=== PATIENT | female | born 1955 | race Caucasian/White ===

== ENCOUNTER → 2019-02-22 | Outpatient (CLI) | payer MEDICARE ==
[~2019-02-22] MED LIST: /TIOT18INH; AMLO5TAB6 PO; BENI20TA11; BREO1INH INH; BUSP5TA PO; FURO40TA2 PO; IPRA0.00 INH; LOSA100T50 PO; PANT40TA3 PO; POTA10TA16 PO; PRED5TA PO; TRAM50TA2; TRAM50TA2 PO; XANA0.5T PO
--- NOTE | 2019-02-22 16:58 | REP ---
PET/CT: History: Diagnosing lung cancer. Comparisons: Comparison chest CT study August 31, 2018. TECHNIQUE: 80 minutes following the intravenous injection of a 9.5 mCi dose of F-18 FDG, three-dimensional PET scintigraphy is acquired from the skull base to the proximal thighs. Triplanar noncontrast CT scanning is acquired through the same anatomic range for attenuation correction, and image registration with scan parameters optimized to minimize radiation exposure to the patient. PET scintigraphy and CT datasets were fused and displayed on a workstation with multiplanar and projection display capability. PET/CT Findings: There is no abnormal hypermetabolic uptake within the chest. Emphysematous changes are noted particularly in the upper lobes. There is mild bibasilar linear fibrosis. Head and neck soft tissues are unremarkable. There is no abnormal adrenal uptake. No abnormal abdominal or pelvic hypermetabolic uptake is appreciated. Urinary bladder is rather distended and there is a moderate amount of formed stool in the rectum consistent with constipation. There is normal variant skeletal muscle uptake about the head and neck and proximal thigh soft tissues. Study is otherwise unremarkable. Impression: Negative PET scintigraphy. The rectum is dilated with formed stool and the urinary bladder is somewhat distended. Electronically Signed by Braxton Rutledge MD 02/22/2019 05:26 P
== END ==
LOC: M PLARAD 10:34
PROVIDERS: ATTEND Internal Medicine Pulmonary Disease
DX: R91.8 Other nonspecific abnormal finding of lung field (principal)
CPT/HCPCS: 78815; A9552

== ENCOUNTER 2019-06-09 00:26 | Inpatient (IN) | payer MEDICARE, BC ==
[~2019-06-09] VITALS: Ht 162.6 cm; Wt 41.9 kg
[2019-06-09] VITALS (20 sets, daily range): BP systolic 87–128; BP diastolic 56–74; O2SAT 94
[~2019-06-09 00:26] MED LIST changes: -/TIOT18INH; +SPIR1CAP
[2019-06-09] MEDS ORDERED: IPRATROPIUM 0.5MG/ALBUTEROL 2.5MG INH SOL UD 3ML (DUONEB)(J7620) NEB PRN (01:30)
[2019-06-09] MEDS ORDERED: ACETAMINOPHEN TAB 650MG DOSE (2X325MG) PO PRN ×2 (01:30→02:00)
[2019-06-09] MEDS ORDERED: ALPRAZolam 0.25 MG TAB PO ONE (01:45)
[2019-06-09] MEDS ORDERED: ONDANSETRON 4MG/2ML VIAL (J2405) IV PRN (01:45)
[2019-06-09 01:58] LABS: ABG BASE EXCESS 6.3 (-2.0-2.0); ABG HCO3 33.3 MEQ/L (22.0-26.0); ABG O2 SATURATION 92.9 % (95.0-99.0); ABG PARTIAL PRESSURE CO2 58.9 mmHg (35.0-45.0); ABG PARTIAL PRESSURE O2 69.4 mmHg (75.0-100.0); ABG STANDARD HCO3 30.1 MEQ/L (22.0-26.0); ABG TOTAL CO2 35.1 MEQ/L (23.0-31.0)
[2019-06-09] MEDS ORDERED: VENTAER INH (01:59)
[2019-06-09] MEDS ORDERED: DULO1CAP6 PO (01:59)
[2019-06-09] MEDS ORDERED: IPRA0.00 INH (01:59)
[2019-06-09] MEDS ORDERED: SYMB80INH INH (01:59)
[2019-06-09] MEDS ORDERED: BUSP-29 PO (02:00)
[2019-06-09] MEDS ORDERED: AZITHROMYCIN INJ 500 MG, VIAL MATE ADAPTER 1 EACH in D5W 250 ML IV SCH (02:00)
[2019-06-09] MEDS ORDERED: IPRATROPIUM 0.5MG/ALBUTEROL 2.5MG INH SOL UD 3ML (DUONEB)(J7620) NEB ONE (02:00)
[2019-06-09] MEDS: methylPREDNISolone INJ 125 MG/2 ML VIAL (J2930) IV SCH ×2 (02:17→09:12)
--- NOTE | 2019-06-09 02:42 | HPEPDOC ---
General Date of Admission Jun 09, 2019 at 01:19 Date of Service: Jun 09, 2019 Chief Complaint The patient is a 63-year-old female admitted with a reason for visit of Copd Exacerbation. History of Present Illness 63-year-old female with past medical history of COPD with emphysema, chronic hypoxemic respiratory failure requiring 2 L of oxygen at baseline, chronic hypercapnic respiratory failure, hypertension, diastolic congestive heart failure, anxiety, and chronic back pain initially presented to [facility] for shortness of breath. The patient's history is limited due to her clinical presentation. According to reports the patient started to feel acutely short of breath this afternoon with increased cough and wheezing. EMS was called, however the patient did not go to the hospital at that time. Later in the evening, the patient's respiratory status worsened and EMS was once again called. In the [facility], the patient was given IV steroids and nebulizer therapy which did improve the patient's respiratory status slightly but the patient remained tachypneic/tachycardic. According to the ER provider there the patient has been hospitalized over 8 times in the last 1 year, and she has been transferred to [place] multiple times due to her high risk of intubation, and requiring close monitoring in an intensive care unit setting. The patient has been transferred here for close monitoring in the intensive care unit and the potential need for BiPAP/Intubation should her respiratory further worsen. Home Medications Scheduled Amlodipine Besylate (Amlodipine Besylate) 5 Mg Tab, 5 MG PO DAILY, (Reported) Budesonide/Formoterol (Symbicort 80-4.5 Mcg Inhaler) 6.9 Gm Hfa.aer.ad, 2 PUFF INH BID, (Reported) Buspirone HCl (Buspirone HCl) 10 Mg Tablet, 10 MG PO BID, (Reported) Duloxetine Hcl (Duloxetine HCl) 60 Mg Capsule.dr, 60 MG PO DAILY, (Reported) Furosemide (Furosemide) 40 Mg Tab, 40 MG PO DAILY, (Reported) Ipratropium/Albuterol Sulfate (Iprat-Albut 0.5-3(2.5) mg/3 ml) 1 Sonia Sonia, 3 ML INH BID, (Reported) Losartan Potassium (Losartan Potassium) 100 Mg Tab, 100 MG PO DAILY, (Reported) Pantoprazole Sodium (Pantoprazole Sodium) 40 Mg Tab, 40 MG PO DAILY, (Reported) Potassium Chloride (Potassium Chloride) 10 Meq Tab, 10 MEQ PO BID, (Reported) Prednisone (Prednisone) 5 Mg Tab, 5 MG PO DAILY, (Reported) Scheduled PRN Albuterol Sulfate (Ventolin Hfa) 18 Gm Hfa.aer.ad, 2 PUFF INH Q4H PRN for SHORTNESS OF BREATH, (Reported) Ipratropium/Albuterol Sulfate (Iprat-Albut 0.5-3(2.5) mg/3 ml) 3 Ml Ampul.neb, 3 ML INH QID PRN for SHORTNESS OF BREATH, (Reported) Tramadol HCl (Tramadol HCl) 50 Mg Tab, 50 MG PO TID PRN for PAIN, (Reported) Allergies Coded Allergies: lidocaine (Verified Allergy, Mild, RASH FROM PATCH, 06/09/19) Past Medical History Medical History As noted in HPI. Surgical History Tubal ligation Social History * Smoker: former Smoker Review of Systems Other systems 10 point review of systems negative unless otherwise specified in HPI. Physical Examination General Exam: Positive: Cooperative, Other (mild-moderate distress 2/2 SOB) ENT Exam: Positive: Atraumatic; Negative: Mucous membr. moist/pink (dry mucous membranes) Neck Exam: Negative: JVD Chest Exam: Positive: Wheezing (expiratory wheezing noted on auscultation la terally in the upper lung zones), Diminished Heart Exam: Positive: Tachycardic, Normal S1, Normal S2 Telemetry: Positive: Sinus Abdomen Exam: Positive: Soft; Negative: Tenderness Extremity Exam: Negative: Tenderness, Swelling Psych Exam: Positive: Other (oriented to person, place, situation, and year) Laboratory Data Labs 24H Laboratory Tests 2 06/09/19 01:51: Blood Gas Bicarbonate Standard 30.1H, Arterial Blood pH 7.370, Arterial Blood Partial Pressure CO2 58.9H, Arterial Blood Partial Pressure O2 69.4L, Arterial Blood Total CO2 35.1H, Arterial Blood HCO3 33.3H, Arterial Blood Base Excess 6.3H, Arterial Blood Oxygen Saturation 92.9L Plan / VTE VTE Prophylaxis Ordered?: Yes Plan Plan Acute COPD Exacerbation CXR from [facility] notable for emphysematous disease with no acute infiltrates noted PE unlikely as the patient's D-Dimer was negative We will start the patient on serial nebulizer therapy, IV steroids IV azithromycin for exacerbation ordered Continue inhaler therapy We will continue to closely monitor the patient's respiratory status Chronic hypoxemic/hypercapnic respiratory failure The patient chronically requires 2 L of oxygen via NC, she is currently on 3L and saturating 88-92% As for the patient's chronic hypercapnic respiratory failure--- the patient has had 2 ABGs since her arrival at [place] and here at [facility]. The patient's hypercapnic respiratory failure (respiratory acidosis) remains compensated for with metabolic acidosis with a pH of 7.36 and 7.37 respectively. The patient is arousable, and oriented to place, year, and situation. We will place the patient on BiPAP while she is asleep, given her difficulty to arouse when trying to awake and concern for CO2 retention We'll continue to closely monitor the patient's respiratory status--consider pulmonary consultation in the morning given the patient's high risk for intubation Hypovolemic hyponatremia Patient noted to have a serum sodium of 124, and hypochloremia on BMP in [place] The patient was given IV fluids thereafter at the facility there Urine osmolarity/sodium, and serum osmolarity levels ordered We will repeat a BMP and order IV fluid composition accordingly We will continue to monitor serial sodium levels Leukocytosis Likely secondary to IV steroids Continue azithromycin as ordered History of diastolic congestive heart failure We will hold Lasix at this time as the patient does appear to be dehydrated History of anxiety/depression Continue BuSpar, duloxetine GERD Continue PPI Malnourishment BMI noted to be 15.7 Complicating care DVT prophylaxis Heparin SC ordered Code Status: DNR, with trial of BiPAP/Intubation Poor Oil Well Driller Prognosis given advanced COPD, requiring multiple hospitalizations, and cachectic appearing condition Condition: Guarded/Critical This patient will be signed out to my colleague at 7 AM this morning (06/09/19). Advanced Directives: Do Not Resuscitate (DNR) FATUMA SNYDER MD Jun 09, 2019 02:41
[2019-06-09] MEDS ORDERED: IPRATROPIUM 0.5MG/ALBUTEROL 2.5MG INH SOL UD 3ML (DUONEB)(J7620) NEB SCH (04:00)
[2019-06-09] MEDS: IPRATROPIUM 0.5MG/ALBUTEROL 2.5MG INH SOL UD 3ML (DUONEB)(J7620) NEB SCH ×6 (04:54→23:32)
[2019-06-09 05:03] LABS: HEMATOCRIT 33.4 % (36.0-47.0); HEMOGLOBIN 11.5 g/dl (12.0-15.5); MEAN CORPUSCULAR HEMOGLOBIN 31.3 pg (27.0-33.0); MEAN CORPUSCULAR HGB CONC 34.4 g/dl (32.0-36.5); PLATELET COUNT, AUTOMATED 297 10^3/uL (150-450); RED BLOOD COUNT 3.67 10^6/uL (4.00-5.40); WHITE BLOOD COUNT 9.3 10^3/uL (4.0-10.0)
[2019-06-09 05:24] LABS: BLOOD UREA NITROGEN 14 MG/DL (7-18); CALCIUM LEVEL 8.8 MG/DL (8.8-10.2); CARBON DIOXIDE LEVEL 35 MEQ/L (21-32); CHLORIDE LEVEL 79 MEQ/L (98-107); CREATININE FOR GFR 0.84 MG/DL (0.55-1.30); GLOMERULAR FILTRATION RATE > 60.0 (>45); GLUCOSE, FASTING 210 MG/DL (70-100); MAGNESIUM LEVEL 1.8 MG/DL (1.8-2.4); POTASSIUM SERUM 3.6 MEQ/L (3.5-5.1); SODIUM LEVEL 125 MEQ/L (136-145)
[2019-06-09] MEDS: HEPARIN SOD (PORCINE) 5000 UNITS/ML VIAL SQ SCH ×2 (05:53→18:00)
[2019-06-09] MEDS ORDERED: methylPREDNISolone INJ 125 MG/2 ML VIAL (J2930) IV SCH (06:00)
[2019-06-09 06:16] LABS: ABG BASE EXCESS 5.9 (-2.0-2.0); ABG HCO3 32.7 MEQ/L (22.0-26.0); ABG O2 SATURATION 95.2 % (95.0-99.0); ABG PARTIAL PRESSURE CO2 58.3 mmHg (35.0-45.0); ABG PARTIAL PRESSURE O2 80.2 mmHg (75.0-100.0); ABG STANDARD HCO3 29.7 MEQ/L (22.0-26.0); ABG TOTAL CO2 34.5 MEQ/L (23.0-31.0); ABG pH (ARTERIAL) 7.367 UNITS (7.350-7.450)
[2019-06-09] MEDS: SYMBICORT 80/4.5MCG INHALER 6GM INH SCH ×2 (07:20→20:12)
[2019-06-09] MEDS ORDERED: PANTOPRAZOLE 40MG TAB (PROTONIX) PO SCH (09:00)
[2019-06-09] MEDS: busPIRone 10 MG TAB PO SCH ×2 (09:12→22:18)
[2019-06-09] MEDS: DULoxetine 30 MG CAP (CYMBALTA) PO SCH (09:12)
[2019-06-09] MEDS ORDERED: PILL CUTTER 1 EACH XX PRN (11:15)
[2019-06-09] MEDS: ALPRAZolam 0.25 MG TAB PO PRN ×2 (13:49→22:18)
--- NOTE | 2019-06-09 22:11 | CR ---
DATE OF CONSULTATION: 06/09/2019 I was asked by to evaluate Ms. Guidry for noninvasive mechanical ventilation recommendations. HISTORY OF PRESENT ILLNESS: Ms. Guirdy is a 63-year-old female with end-stage chronic obstructive pulmonary disease (COPD) felt secondary to emphysema who presented to the [place] emergency department yesterday with a several-day history of increasing shortness of breath. She states this has come on over time. No significant cough. She noted chest tightness but not chest pain. She was sleeping in her bed in her usual position, which is with mild elevation. No paroxysmal nocturnal dyspnea, orthopnea. She has noted increased gastroesophageal reflux disease (GERD) symptoms over a similar time. No fevers, chills or drenching night sweats that she is aware, though she states she had a "low grade" temperature when she went to the emergency department. No lower extremity edema. No ill contacts. She was seen in the [facility] and was treated with intravenous corticosteroids and nebulized therapy, which improved her respiratory status, but she still remained tachypneic and tachycardia. She apparently has been hospitalized eight times in the past year and has been transferred to [place] multiple times due to her being "high risk" for intubation. Note, she has not ever been intubated. This time she was transferred to [facility] again for high risk of intubation. When she arrived here she was placed on noninvasive mechanical ventilation though she never had acidemia and had a compensated arterial blood gas. She tells me this morning she did not like the noninvasive mechanical ventilator and in fact it was not on when I saw her. She states that she "fought" the mask. Overall, she feels better than she did yesterday and feels close to her baseline now. She admits to significant anxiety, which is part of her difficulties. She tries to "calm myself down," but is not typically successful. She is followed by Dr. Mcdaniel and states that he has not been willing to prescribe an anti anxiolytic and that she does take tramadol for pain. Her , Yuri, who was with here this morning, states that part of her anxiety and difficulty is that she is having to go to the doctor's once a month to get a refill on the tramadol. He also notes that she has her Medical Orders for Life Sustaining Treatment (MOLST) form and is very clear on her wishes that she is a DO NOT RESUSCITATE, DO NOT INTUBATE. In fact, it is not clear that they would want her to have a noninvasive mechanical ventilator in the future but he will defer this decision to his . He, himself, is not opposed to short term NIMV but he is not sure what but she would wish. Also, she had been on long standing prednisone at 5 mg per day. She had seen Dr. Robertson who did not feel it was necessary but was not certain it could be successfully weaned off, this was in January. She saw Dr. Mcdaniel since that time, who stopped that medication so she has been off it for some time, it is listed as a home medication on her admission sheet. She does not offer any other history except to state that she is hungry and would like to eat. She does take dietary supplements sometimes once a day, but sometimes not at all. PAST MEDICAL HISTORY: 1. COPD, considered end-stage and thought secondary to emphysema. 2. Chronic hypoxemic and hypercapnic respiratory failure. 3. Hypertension. 4. Diastolic congestive heart failure. 5. Anxiety. 6. Chronic back pain. 7. History of tobacco usage. 8. History of right pneumothorax for which she had tube thoracostomy 08/14/2018. 9. GERD ALLERGIES: LIDOCAINE. I do not know what happens with that medication. MEDICATIONS ON ADMISSION: - albuterol MDI two puffs every four hours as needed - amlodipine 5 mg by mouth daily - Symbicort 80/4.5 two puffs twice a day, which she uses by a spacer - buspirone 10 mg by mouth twice a day - duloxetine 60 mg by mouth daily - furosemide 40 mg by mouth daily - ipratropium nebulization four times a day as needed - Losartan 100 mg by mouth daily - pantoprazole 40 mg by mouth daily - potassium 10 mg by mouth twice a day - tramadol 50 mg by mouth three times a day as needed FAMILY HISTORY: Mother and had COPD. Father of heart issues. SOCIAL HISTORY: Ms. Guidry is a former smoker having smoked one to one and a half packs per day since age 16, having quit 5 years ago, that gives her a 40-60 pack-year history. She has approximately six beers per week. Her work was previously as a learning development specialist. No travel to the [facility]. Ms. Guidry has one dog, unfortunately lost one dog within the past year and the second one is not expected to survive much longer. REVIEW OF SYSTEMS: As per history of present illness. Remainder of pertinent review of systems are negative. PHYSICAL EXAMINATION: General: Ms. Guidry is lying in bed in no acute distress. She intermittently uses supraclavicular accessory muscles. She is cachectic. VITAL SIGNS: Temperature 97.8 with a maximum temperature (t-max) of 100.2, pulse 109, respiratory rate 22. Blood pressure 98/62 with a MAP of 74, SPO2 95-96% on 2 liters nasal cannula. HEENT: Anicteric., Pupils equal, round, and reactive to light and accommodation. Nares: Patent bilaterally. Moist mucosa. Oropharynx clear. No lesions. No drainage in the posterior pharynx. Edentulous on top, poor dentition on the bottom. Neck: Supple without jugular venous distention (JVD), thyromegaly, masses, trachea is midline. Lymphatics: Without cervical or supraclavicular lymphadenopathy. CHEST: Increased AP diameter. LUNGS: Symmetric excursion, markedly diminished air entry, no wheeze, rhonchi or crackle on tidal excursion. Prolonged expiratory phase. Mild intermittent accessory supraclavicular muscle usage. No retractions. Hyperresonance to percussion. Cardiovascular: Distant, tachycardiac, no murmur, rub or gallop appreciated. Abdomen: Positive bowel sounds, soft, nondistended, nontender, no hepatosplenomegaly or masses appreciated. Extremities: Warm, well-perfused. Without clubbing, cyanosis or edema. Palpable pedal pulses bilaterally. Psychiatric: Appropriate affect though at times appears anxious. Neurologic: Alert, awake, oriented times three. No focal deficits. LABORATORY DATA: Complete blood count (CBC) showed hemoglobin 11.5, hematocrit 33.4, platelet count 297,000, white blood cell count 9300. Chemistry shows sodium 125, potassium 3.6, chloride 79, bicarbonate 35, anion gap 11, BUN 14, creatinine 0.8, glucose 210, osmolality 266, calcium 8.8, magnesium 1.8. Procalcitonin is pending. Arterial blood gas on arrival here was 7.37/59/69 with a measured saturation 93% and a base excess of 6.3, I do not know how much oxygen that was on. Repeat this morning after she had been put on NIMV of 09/03 with an FIO2 of 0.4 was 7.37/58/80 with a measured saturation 95.2 and a base excess of 5.9. No chest x-ray has been taken this admission. Therefore, I reviewed her chest x-ray from 09/02/2018. It is clear from that x-ray that shows that she has bullous emphysematous changes, as well as hyperinflation and increased AP diameter. IMPRESSION: 1. Chronic obstructive pulmonary disease (COPD)/end stage. It is not clear that she truly had an exacerbation. I suspect any perturbation, such as anxiety would cause her to end up with acute difficulties secondary to air trapping. 2. Chronic hypoxemic and hypercapnic respiratory failure. 3. Emphysema. 4. Gastroesophageal reflux disease (GERD), increased symptoms. This also may be the cause of her worsened shortness of breath. 5. Hypertension. 6. Diastolic congestive heart failure. 7. Anxiety. 8. Chronic lower back pain. RECOMMENDATIONS: I would discontinue the noninvasive mechanical ventilation at this point. Per the 2007 ERS/ATS guidelines, NIMV is not recommended for patients with hypercapnia who are not acidemic, this includes people who are considered to be "pending." Perceived as potentially worsening to require intubation. The data shows no difference in morbidity nor need for intubation by use of NIMV in that situation. Would allow her to eat and would continue supplementation. We will start her on very low dose of anxiolytic as they may "take the edge off." I started her on Xanax 0.125 three times a day as needed. Would increase her GERD therapy as that may be in part explaining her symptoms or triggering underlying COPD. At this point I do not feel she needs systemic corticosteroids and will markedly decrease them. I decreased her to 20 mg for 2 days, 10 mg for 2 days and then off. Again, this appears more perturbation than an exacerbation. She should be weaned off of prednisone prior to discharge if she is no longer on prednisone on a daily basis. I have asked that the reconciled medications reflect the fact that she is no longer on prednisone on a daily basis. Would discontinue the antibiotic as she gives no infectious history. However, I will start azithromycin three times per week. This had previously been discussed with Dr. Robertson. This may help reduce her need for hospitalization (although it would not alter any hospitalizations secondary to anxiety and air trapping). She also may benefit from the anti-inflammatory effect of azithromycin. This can be discontinued at discharge if she does not want to continue to use this medication. Ms. Guidry is established with Dr. Robertson, though she has not attended and cancelled most follow-up visits. I do not feel she needs pulmonary clinic followup. It is very difficult for her to be transported to clinic. In speaking to her , she spends most of her time lying in bed and it is very difficult to get to clinic visits. I feel she may benefit from palliative care if it is available in [facility] and I have asked patient and family services (PFS) to see if it is a possibility. Thank you for this consultation. We will sign off at this time. Please consult the pulmonary service if it is felt that we can be of any further assistance.
[2019-06-09] MEDS: PANTOPRAZOLE 40MG TAB (PROTONIX) PO SCH (22:19)
[2019-06-09] MEDS: traMADol 50 MG TAB PO PRN (22:19)
[2019-06-10] VITALS (13 sets, daily range): BP systolic 96–134; BP diastolic 58–83
[2019-06-10] MEDS: IPRATROPIUM 0.5MG/ALBUTEROL 2.5MG INH SOL UD 3ML (DUONEB)(J7620) NEB SCH ×6 (03:28→23:48)
[2019-06-10 05:12] LABS: HEMATOCRIT 35.4 % (36.0-47.0); HEMOGLOBIN 11.5 g/dl (12.0-15.5); MEAN CORPUSCULAR HEMOGLOBIN 30.7 pg (27.0-33.0); MEAN CORPUSCULAR HGB CONC 32.5 g/dl (32.0-36.5); MEAN CORPUSCULAR VOLUME 94.4 fl (80.0-96.0); PLATELET COUNT, AUTOMATED 318 10^3/uL (150-450); RED BLOOD COUNT 3.75 10^6/uL (4.00-5.40); WHITE BLOOD COUNT 8.4 10^3/uL (4.0-10.0)
[2019-06-10 05:30] LABS: BLOOD UREA NITROGEN 14 MG/DL (7-18); CALCIUM LEVEL 9.3 MG/DL (8.8-10.2); CARBON DIOXIDE LEVEL 42 MEQ/L (21-32); CHLORIDE LEVEL 81 MEQ/L (98-107); CREATININE FOR GFR 0.76 MG/DL (0.55-1.30); GLOMERULAR FILTRATION RATE > 60.0 (>45); GLUCOSE, FASTING 166 MG/DL (70-100); POTASSIUM SERUM 4.3 MEQ/L (3.5-5.1); SODIUM LEVEL 126 MEQ/L (136-145)
[2019-06-10] MEDS: HEPARIN SOD (PORCINE) 5000 UNITS/ML VIAL SQ SCH ×2 (06:00→18:00)
[2019-06-10] MEDS: TIOTROPIUM INHALER/CAPSULE (SPIRIVA) INH SCH (08:17)
[2019-06-10] MEDS: SYMBICORT 80/4.5MCG INHALER 6GM INH SCH ×2 (08:17→19:46)
[2019-06-10] MEDS: predniSONE 20 MG TAB PO SCH (08:39)
[2019-06-10] MEDS: PANTOPRAZOLE 40MG TAB (PROTONIX) PO SCH ×2 (08:39→20:28)
[2019-06-10] MEDS: DULoxetine 30 MG CAP (CYMBALTA) PO SCH (08:40)
[2019-06-10] MEDS: ALPRAZolam 0.25 MG TAB PO PRN ×3 (08:40→20:28)
[2019-06-10] MEDS: traMADol 50 MG TAB PO PRN ×3 (08:40→20:28)
[2019-06-10] MEDS: AZITHROMYCIN 250 MG TAB PO SCH (08:40)
[2019-06-10] MEDS: busPIRone 10 MG TAB PO SCH ×2 (08:41→20:28)
--- NOTE | 2019-06-10 11:22 | IPNPDOC ---
Text Note Date of Service The patient was seen on 06/10/19. NOTE Subjective: Patient seen and examined at bedside. Feels much better today. No new medical complaints, does note some anxiety. Objective: General: cachectic, lying comfortably in bed HEENT: NC/AT, EOMI Lungs: diminished breath sounds throughout Heart: +S1S2, RRR Abd: soft, NT, +BS Ext: no edema A/P: 63 yo female for respiratory distress #SOB - multifactorial - anxiety in the setting of of end-stage COPD - pulm c/s appreciated #chronic hypoxemic/hypercapnic respiratory failure. - grossly at baseline with supplemental O2 - continue respiratory regimen - azithromycin 3x/week - prednisone - follow as per pulm #hyponatremia #HTN #HFpEF #anxiety - started xanax # Chronic back pain. # History of tobacco usage. # History of right pneumothorax for which she had tube thoracostomy 08/14/2018 #DVT prophylaxis Dispo: pending palliative care c/s VS,Fishbone, I+O VS, Fishbone, I+O Laboratory Tests 06/09/19 11:53 06/09/19 17:51 06/10/19 04:52 Red Blood Count 3.75 L, Mean Corpuscular Volume 94.4, Mean Corpuscular Hemoglobin 30.7, Mean Corpuscular Hemoglobin Concent 32.5, Red Cell Distribution Width 11.9, Calcium Level 9.3 Vital Signs Date Time Temp Pulse Resp B/P (MAP) Pulse Ox O2 Delivery O2 Flow Rate FiO2 06/10/19 09:10 18 06/10/19 08:40 93 2.0 06/10/19 04:00 110 102/71 (81) 06/10/19 00:00 97.0 06/09/19 08:00 30 06/09/19 02:36 BIPAP/CPAP I&O- Last 24 Hours up to 6 AM 06/10/19 06:00 Intake Total 860 ml Output Total 0 ml Balance 860 ml JOHN MOLINA MD Jun 10, 2019 11:21
--- NOTE | 2019-06-10 16:18 | CR.PDOC ---
General Referring Provider: JOHN MOLINA MD Primary Care Physician: Adam Mcdaniel Attending Physician: Karlo Anthony MD Consultation REASON FOR CONSULTATION/CHIEF COMPLAINT: [89 year old with end stage COPD. She has had multiple hospitalizations for exacerbations. ALLERGIES: Please see below. HOME MEDICATIONS: Please see below. Rubina Padron PANDA and I spoke with Jennifer and her ( via telephone ) regarding [facility]. She is willing to come to clinic for follow up and to have us help her manage her chronic lung disease. She expresses a desire to have home health care. Rubina Padron PANDA will help her navigate that. We gave her will appointment for June 16 at 100 in clinic. Vital Signs/I&O Vital Signs Date Time Temp Pulse Resp B/P (MAP) Pulse Ox O2 Delivery O2 Flow Rate FiO2 06/10/19 14:56 20 98 06/10/19 14:26 2.0 06/10/19 14:00 120 113/67 (82) 06/10/19 12:00 97.2 06/09/19 08:00 30 06/09/19 02:36 BIPAP/CPAP I&O- Last 24 Hours up to 6 AM0 06/10/19 06:00 Intake Total 860 ml Output Total 0 ml Balance 860 ml Laboratory Data Labs 24H Laboratory Tests 2 06/10/19 04:52: Nucleated Red Blood Cells % (auto) 0.0, Anion Gap 3L, Glomerular Filtration Rate > 60.0, Blood Urea Nitrogen 14, Creatinine 0.76, Sodium Level 126L, Potassium Level 4.3, Chloride Level 81L, Carbon Dioxide Level 42H, Calcium Level 9.3 CBC/BMP Laboratory Tests 06/09/19 17:51 06/10/19 04:52 Red Blood Count 3.75 L, Mean Corpuscular Volume 94.4, Mean Corpuscular Hemoglobin 30.7, Mean Corpuscular Hemoglobin Concent 32.5, Red Cell Distribution Width 11.9, Calcium Level 9.3 Allergies Coded Allergies: lidocaine (Verified Allergy, Mild, RASH FROM PATCH, 06/09/19) Home Medications Scheduled Amlodipine Besylate (Amlodipine Besylate) 5 Mg Tab, 5 MG PO DAILY, (Reported) Budesonide/Formoterol (Symbicort 80-4.5 Mcg Inhaler) 6.9 Gm Hfa.aer.ad, 2 PUFF INH BID, (Reported) Buspirone HCl (Buspirone HCl) 10 Mg Tablet, 10 MG PO BID, (Reported) Duloxetine Hcl (Duloxetine HCl) 60 Mg Capsule.dr, 60 MG PO DAILY, (Reported) Furosemide (Furosemide) 40 Mg Tab, 40 MG PO DAILY, (Reported) Ipratropium/Albuterol Sulfate (Iprat-Albut 0.5-3(2.5) mg/3 ml) 1 Sonia Sonia, 3 ML INH BID, (Reported) Losartan Potassium (Losartan Potassium) 100 Mg Tab, 100 MG PO DAILY, (Reported) Pantoprazole Sodium (Pantoprazole Sodium) 40 Mg Tab, 40 MG PO DAILY, (Reported) Potassium Chloride (Potassium Chloride) 10 Meq Tab, 10 MEQ PO BID, (Reported) Prednisone (Prednisone) 5 Mg Tab, 5 MG PO DAILY, (Reported) Scheduled PRN Albuterol Sulfate (Ventolin Hfa) 18 Gm Hfa.aer.ad, 2 PUFF INH Q4H PRN for SHORTNESS OF BREATH, (Reported) Ipratropium/Albuterol Sulfate (Iprat-Albut 0.5-3(2.5) mg/3 ml) 3 Ml Ampul.neb, 3 ML INH QID PRN for SHORTNESS OF BREATH, (Reported) Tramadol HCl (Tramadol HCl) 50 Mg Tab, 50 MG PO TID PRN for PAIN, (Reported) Mary BRIONES CONTINUOUS CHURN [employer]TERMAKER Jun 10, 2019 16:18
[2019-06-11] MEDS: IPRATROPIUM 0.5MG/ALBUTEROL 2.5MG INH SOL UD 3ML (DUONEB)(J7620) NEB SCH ×5 (04:00→20:00)
[2019-06-11 05:15] LABS: HEMATOCRIT 34.7 % (36.0-47.0); MEAN CORPUSCULAR HEMOGLOBIN 30.1 pg (27.0-33.0); MEAN CORPUSCULAR HGB CONC 31.7 g/dl (32.0-36.5); MEAN CORPUSCULAR VOLUME 94.8 fl (80.0-96.0); PLATELET COUNT, AUTOMATED 342 10^3/uL (150-450); RED BLOOD COUNT 3.66 10^6/uL (4.00-5.40); WHITE BLOOD COUNT 10.5 10^3/uL (4.0-10.0)
[2019-06-11 05:43] LABS: BLOOD UREA NITROGEN 14 MG/DL (7-18); CALCIUM LEVEL 8.8 MG/DL (8.8-10.2); CARBON DIOXIDE LEVEL 42 MEQ/L (21-32); CHLORIDE LEVEL 84 MEQ/L (98-107); CREATININE FOR GFR 0.54 MG/DL (0.55-1.30); GLOMERULAR FILTRATION RATE > 60.0 (>45); GLUCOSE, FASTING 137 MG/DL (70-100); POTASSIUM SERUM 4.8 MEQ/L (3.5-5.1); SODIUM LEVEL 129 MEQ/L (136-145)
[2019-06-11] MEDS: HEPARIN SOD (PORCINE) 5000 UNITS/ML VIAL SQ SCH ×2 (06:00→17:47)
[2019-06-11] MEDS: ALPRAZolam 0.25 MG TAB PO PRN ×2 (06:58→17:47)
[2019-06-11] MEDS: traMADol 50 MG TAB PO PRN ×2 (06:59→17:47)
[2019-06-11] MEDS: TIOTROPIUM INHALER/CAPSULE (SPIRIVA) INH SCH (08:04)
[2019-06-11] MEDS: SYMBICORT 80/4.5MCG INHALER 6GM INH SCH ×2 (08:05→20:06)
--- NOTE | 2019-06-11 08:20 | IPNPDOC ---
Text Note Date of Service The patient was seen on 06/11/19. NOTE Subjective: Patient seen and examined at bedside. Feels much better today. No new medical complaints, no acute overnight events reported. Objective: General: cachectic, lying comfortably in bed HEENT: NC/AT, EOMI Lungs: diminished breath sounds throughout Heart: +S1S2, RRR Abd: soft, NT, +BS Ext: no edema A/P: 63 yo female for respiratory distress #SOB - multifactorial - anxiety in the setting of end-stage COPD - pulm c/s appreciated #chronic hypoxemic/hypercapnic respiratory failure. - grossly at baseline with supplemental O2 - continue respiratory regimen - azithromycin 3x/week - prednisone - follow as per pulm #hyponatremia #HTN #HFpEF #anxiety - started xanax # Chronic back pain. # History of tobacco usage. # History of right pneumothorax for which she had tube thoracostomy 08/14/2018 #DVT prophylaxis Dispo: will f/u o/p with palliative care 06/16/19, needs home care on discharge VS,Jose Luisbone, I+O VS, Jose Luisbone, I+O Laboratory Tests 06/11/19 04:50 Red Blood Count 3.66 L, Mean Corpuscular Volume 94.8, Mean Corpuscular Hemoglobin 30.1, Mean Corpuscular Hemoglobin Concent 31.7 L, Red Cell Distribution Width 11.9, Calcium Level 8.8 Vital Signs Date Time Temp Pulse Resp B/P (MAP) Pulse Ox O2 Delivery O2 Flow Rate FiO2 06/11/19 06:59 22 06/11/19 04:00 2.0 06/10/19 20:00 97.2 115 109/63 (78) 91 06/09/19 08:00 30 06/09/19 02:36 BIPAP/CPAP l I&O- Last 24 Hours up to 6 AM 06/11/19 06:00 Intake Total 2040 ml Balance 2040 ml JOHN MOLINA MD Jun 11, 2019 08:20
[2019-06-11] MEDS: busPIRone 10 MG TAB PO SCH ×2 (08:28→20:24)
[2019-06-11] MEDS: predniSONE 20 MG TAB PO SCH (08:28)
[2019-06-11] MEDS: DULoxetine 30 MG CAP (CYMBALTA) PO SCH (08:29)
[2019-06-11] MEDS: PANTOPRAZOLE 40MG TAB (PROTONIX) PO SCH ×2 (08:29→20:24)
[2019-06-11 12:00] VITALS: BP 132/72
[2019-06-11 14:19] VITALS: BP 151/79
[2019-06-11 22:00] VITALS: BP 126/73
[2019-06-12] MEDS: IPRATROPIUM 0.5MG/ALBUTEROL 2.5MG INH SOL UD 3ML (DUONEB)(J7620) NEB SCH ×7 (00:02→23:35)
[2019-06-12] MEDS: ALPRAZolam 0.25 MG TAB PO PRN ×3 (02:06→20:30)
[2019-06-12] MEDS: traMADol 50 MG TAB PO PRN ×4 (02:07→18:00)
[2019-06-12] MEDS: HEPARIN SOD (PORCINE) 5000 UNITS/ML VIAL SQ SCH ×2 (05:08→18:03)
[2019-06-12 05:58] LABS: HEMOGLOBIN 10.3 g/dl (12.0-15.5); MEAN CORPUSCULAR HEMOGLOBIN 29.9 pg (27.0-33.0); MEAN CORPUSCULAR HGB CONC 31.2 g/dl (32.0-36.5); MEAN CORPUSCULAR VOLUME 95.9 fl (80.0-96.0); PLATELET COUNT, AUTOMATED 303 10^3/uL (150-450); RED BLOOD COUNT 3.44 10^6/uL (4.00-5.40); WHITE BLOOD COUNT 8.2 10^3/uL (4.0-10.0)
[2019-06-12 06:00] VITALS: BP 118/68
[2019-06-12 06:26] LABS: BLOOD UREA NITROGEN 11 MG/DL (7-18); CALCIUM LEVEL 8.5 MG/DL (8.8-10.2); CARBON DIOXIDE LEVEL 43 MEQ/L (21-32); CHLORIDE LEVEL 88 MEQ/L (98-107); CREATININE FOR GFR 0.45 MG/DL (0.55-1.30); GLOMERULAR FILTRATION RATE > 60.0 (>45); GLUCOSE, FASTING 116 MG/DL (70-100); SODIUM LEVEL 134 MEQ/L (136-145)
[2019-06-12] MEDS: PANTOPRAZOLE 40MG TAB (PROTONIX) PO SCH ×2 (07:33→20:30)
[2019-06-12] MEDS: busPIRone 10 MG TAB PO SCH ×2 (07:33→20:30)
[2019-06-12] MEDS: predniSONE 10 MG TAB PO SCH (07:34)
[2019-06-12] MEDS: DULoxetine 30 MG CAP (CYMBALTA) PO SCH (07:34)
[2019-06-12] MEDS: SYMBICORT 80/4.5MCG INHALER 6GM INH SCH ×2 (07:51→21:05)
[2019-06-12] MEDS: TIOTROPIUM INHALER/CAPSULE (SPIRIVA) INH SCH (07:51)
[2019-06-12] MEDS ORDERED: CEPACOL LOZENGE PO PRN (12:15)
[2019-06-12 14:00] VITALS: BP 132/77
[2019-06-12 22:00] VITALS: BP 121/71
[2019-06-13] MEDS: traMADol 50 MG TAB PO PRN ×5 (00:12→23:12)
[2019-06-13] MEDS: IPRATROPIUM 0.5MG/ALBUTEROL 2.5MG INH SOL UD 3ML (DUONEB)(J7620) NEB SCH ×6 (04:00→23:22)
[2019-06-13] MEDS: HEPARIN SOD (PORCINE) 5000 UNITS/ML VIAL SQ SCH ×2 (05:11→16:48)
[2019-06-13] MEDS: ALPRAZolam 0.25 MG TAB PO PRN ×4 (05:14→21:01)
[2019-06-13 06:00] VITALS: BP 105/66
[2019-06-13] MEDS: TIOTROPIUM INHALER/CAPSULE (SPIRIVA) INH SCH (07:29)
[2019-06-13] MEDS: SYMBICORT 80/4.5MCG INHALER 6GM INH SCH ×2 (07:29→20:17)
[2019-06-13] MEDS: AZITHROMYCIN 250 MG TAB PO SCH (08:39)
[2019-06-13] MEDS: busPIRone 10 MG TAB PO SCH ×2 (08:39→21:01)
[2019-06-13] MEDS: PANTOPRAZOLE 40MG TAB (PROTONIX) PO SCH ×2 (08:39→21:01)
[2019-06-13] MEDS: predniSONE 10 MG TAB PO SCH (08:39)
[2019-06-13] MEDS: DULoxetine 30 MG CAP (CYMBALTA) PO SCH (08:39)
[2019-06-13 14:00] VITALS: BP 111/68
--- NOTE | 2019-06-13 15:14 | IPNPDOC ---
Text Note Date of Service The patient was seen on 06/13/19. NOTE Pt was seen and examined at bedside. Pt reports increased wheezing and shortness of breath. She is requesting more frequent nebulizer treatments. Pt has outpt appointment with palliative care. PHE General: pt is in moderate respiratory distress with wheezing HEENT: NAA EOMI neck supple no icterus Lungs: bilat scattered wheezing Heart: S1 S2 no murmur Abd: soft, not tender not distended Ext: no edema Vital Signs Date Time Temp Pulse Resp B/P (MAP) Pulse Ox O2 Delivery O2 Flow Rate FiO2 06/13/19 14:00 97.5 101 16 111/68 (82) 100 2.0 06/13/19 12:01 18 2.0 06/13/19 11:31 22 2.0 06/13/19 09:00 2.0 06/13/19 06:00 97.7 114 18 105/66 (79) 97 2.0 06/13/19 05:12 20 06/13/19 00:12 18 2.0 06/12/19 22:00 96.8 112 20 121/71 (88) 96 2.0 06/12/19 20:00 2.0 06/12/19 18:00 18 Intake & Output 06/13/19 06:00 Intake Total 2040 ml Balance 2040 ml Current Medications Medications (Trade) Dose Ordered Sig/Melchor Route PRN Reason Start Time Stop Time Status Last Admin Dose Admin Albuterol/ Ipratropium (Duoneb (Ipr 0.5mg/Alb 2.5mg)) 3 ml RQ4H NEB 06/09/19 04:00 06/13/19 11:15 3 ML Alprazolam (Xanax) 0.125 mg TIDP PRN PO ANXIETY 06/09/19 11:00 06/13/19 11:31 0.125 MG Azithromycin (Zithromax Tab) 250 mg MoWeFr@0900 PO 06/10/19 09:00 06/13/19 08:39 250 MG Budesonide/ Formoterol Fumarate (Symbicort 80/ 4.5mcg) 2 puff RBID INH 06/09/19 08:00 06/13/19 07:29 2 PUFF Buspirone HCl (Buspar) 10 mg BID PO 06/09/19 09:00 06/13/19 08:39 10 MG Duloxetine HCl (Cymbalta) 60 mg DAILY PO 06/09/19 09:00 06/13/19 08:39 60 MG Heparin Sodium (Porcine) (Heparin) 5,000 units Q12H SQ 06/09/19 06:00 06/13/19 05:11 5,000 UNITS Ondansetron HCl (ZOFRAN INJection) 4 mg Q4HP PRN IV NAUSEA OR VOMITING 06/09/19 01:45 06/09/19 02:17 4 MG Pantoprazole Sodium (Protonix) 40 mg BID PO 06/09/19 21:00 06/13/19 08:39 40 MG Tiotropium [place] (Spiriva Handihaler) 1 inhalation DAILY@08 INH 06/10/19 08:00 06/13/19 07:29 1 INHALATION Tramadol HCl (Ultram) 50 mg QIDP PRN PO PAIN 06/12/19 12:15 06/13/19 11:31 50 MG 1-Acute on chronic hypoxic and hypercapnic respiratory failure sec to COPD exacerbation pulm c/s appreciated Cont Azithromycin Cont Steroids Bronchodilators 2-hyponatremia improved cont to monitor 3-HTN 4-HFpEF 5-anxiety Cont xanax 6-Chronic back pain. 7-History of tobacco usage. 8-History of right pneumothorax for which she had tube thoracostomy 08/14/2018 DVT prophylaxis Dispo: will f/u o/p with palliative care 06/16/19, needs home care on discharge, clinically not optimized for dc today sec to respiratory distress/wheezing VS,Fishbone, I+O VS, Fishbone, I+O Vital Signs Date Time Temp Pulse Resp B/P (MAP) Pulse Ox O2 Delivery O2 Flow Rate FiO2 06/13/19 14:00 97.5 101 16 111/68 (82) 100 2.0 06/09/19 08:00 30 06/09/19 02:36 BIPAP/CPAP I&O- Last 24 Hours up to 6 AM 06/13/19 06:00 Intake Total 2040 ml Balance 2040 ml JONES WHITFIELD MD Jun 13, 2019 15:14
[2019-06-13 22:00] VITALS: BP 118/71
[2019-06-14] MEDS: IPRATROPIUM 0.5MG/ALBUTEROL 2.5MG INH SOL UD 3ML (DUONEB)(J7620) NEB SCH ×6 (03:51→23:04)
[2019-06-14] MEDS: traMADol 50 MG TAB PO PRN ×3 (05:01→23:27)
[2019-06-14] MEDS: HEPARIN SOD (PORCINE) 5000 UNITS/ML VIAL SQ SCH ×2 (05:01→17:22)
[2019-06-14] MEDS: ALPRAZolam 0.25 MG TAB PO PRN ×2 (05:03→11:24)
[2019-06-14 06:00] VITALS: BP 128/74
[2019-06-14] MEDS: SYMBICORT 80/4.5MCG INHALER 6GM INH SCH ×2 (08:06→19:29)
[2019-06-14] MEDS: TIOTROPIUM INHALER/CAPSULE (SPIRIVA) INH SCH (08:06)
[2019-06-14] MEDS: DULoxetine 30 MG CAP (CYMBALTA) PO SCH (08:08)
[2019-06-14] MEDS: busPIRone 10 MG TAB PO SCH ×2 (08:08→21:08)
[2019-06-14] MEDS: PANTOPRAZOLE 40MG TAB (PROTONIX) PO SCH ×2 (08:08→21:08)
[2019-06-14] MEDS: predniSONE 20 MG TAB PO SCH (10:43)
[2019-06-14] MEDS: BUDESONIDE 0.5 MG/2 ML INHALATION SUSPENSION INH SCH ×2 (11:20→19:29)
--- NOTE | 2019-06-14 11:25 | IPNPDOC ---
Text Note Date of Service The patient was seen on 06/14/19. NOTE Pt was seen and examined at bedside. Pt continues with exertional dyspnea tachypnea and bronchospasm. Denies any fever, chills. PHE General: pt is in moderate respiratory distress with wheezing HEENT: ANA EOMI neck supple no icterus Lungs: bilat scattered wheezing Heart: S1 S2 no murmur Abd: soft, not tender not distended Ext: no edema no cyanosis no tenderness Vital Signs Date Time Temp Pulse Resp B/P (MAP) Pulse Ox O2 Delivery O2 Flow Rate FiO2 06/13/19 14:00 97.5 101 16 111/68 (82) 100 2.0 06/13/19 12:01 18 2.0 06/13/19 11:31 22 2.0 06/13/19 09:00 2.0 06/13/19 06:00 97.7 114 18 105/66 (79) 97 2.0 06/13/19 05:12 20 06/13/19 00:12 18 2.0 06/12/19 22:00 96.8 112 20 121/71 (88) 96 2.0 06/12/19 20:00 2.0 06/12/19 18:00 18 Intake & Output 06/13/19 06:00 Intake Total 2040 ml Balance 2040 ml Current Medications Medications (Trade) Dose Ordered Sig/Melchor Route PRN Reason Start Time Stop Time Status Last Admin Dose Admin Albuterol/ Ipratropium (Duoneb (Ipr 0.5mg/Alb 2.5mg)) 3 ml RQ4H NEB 06/09/19 04:00 06/13/19 11:15 3 ML Alprazolam (Xanax) 0.125 mg TIDP PRN PO ANXIETY 06/09/19 11:00 06/13/19 11:31 0.125 MG Azithromycin (Zithromax Tab) 250 mg MoWeFr@0900 PO 06/10/19 09:00 06/13/19 08:39 250 MG Budesonide/ Formoterol Fumarate (Symbicort 80/ 4.5mcg) 2 puff RBID INH 06/09/19 08:00 06/13/19 07:29 2 PUFF Buspirone HCl (Buspar) 10 mg BID PO 06/09/19 09:00 06/13/19 08:39 10 MG Duloxetine HCl (Cymbalta) 60 mg DAILY PO 06/09/19 09:00 06/13/19 08:39 60 MG Heparin Sodium (Porcine) (Heparin) 5,000 units Q12H SQ 06/09/19 06:00 06/13/19 05:11 5,000 UNITS Ondansetron HCl (ZOFRAN INJection) 4 mg Q4HP PRN IV NAUSEA OR VOMITING 06/09/19 01:45 06/09/19 02:17 4 MG Pantoprazole Sodium (Protonix) 40 mg BID PO 06/09/19 21:00 06/13/19 08:39 40 MG Tiotropium [place] (Spiriva Handihaler) 1 inhalation DAILY@08 INH 06/10/19 08:00 06/13/19 07:29 1 INHALATION Tramadol HCl (Ultram) 50 mg QIDP PRN PO PAIN 06/12/19 12:15 06/13/19 11:31 50 MG 1-Acute on chronic hypoxic and hypercapnic respiratory failure sec to COPD exacerbation pulm c/s appreciated Cont Azithromycin Cont Steroids Cont Alb/Ipr q2 prn Cont Alb/Ipr q4 melchor ICS added today Cont Symbicort and Spiriva 2-Hyponatremia improved cont to monitor 3-HTN 4-HFpEF 5-anxiety Cont xanax 6-Chronic back pain. 7-History of tobacco usage. 8-History of right pneumothorax for which she had tube thoracostomy 08/14/2018 DVT prophylaxis Dispo: will f/u o/p with palliative care 06/16/19, needs home care on discharge, possible dc in AM VS,Ileana, I+O VS, Ileana, I+O Vital Signs Date Time Temp Pulse Resp B/P (MAP) Pulse Ox O2 Delivery O2 Flow Rate FiO2 06/14/19 10:56 20 2.0 06/14/19 06:00 97.5 115 128/74 (92) 96 06/09/19 08:00 30 06/09/19 02:36 BIPAP/CPAP I&O- Last 24 Hours up to 6 AM 06/14/19 06:00 Intake Total 1990 ml Balance 1990 ml JONES WHITFIELD MD Jun 14, 2019 11:25
[2019-06-14 14:00] VITALS: BP 120/48
[2019-06-14 22:00] VITALS: BP 123/96
[2019-06-15] MEDS: IPRATROPIUM 0.5MG/ALBUTEROL 2.5MG INH SOL UD 3ML (DUONEB)(J7620) NEB SCH ×4 (04:00→16:12)
[2019-06-15 06:00] VITALS: BP 131/80
[2019-06-15] MEDS: HEPARIN SOD (PORCINE) 5000 UNITS/ML VIAL SQ SCH ×2 (06:12→18:00)
[2019-06-15] MEDS: traMADol 50 MG TAB PO PRN ×2 (06:12→11:19)
[2019-06-15] MEDS: ALPRAZolam 0.25 MG TAB PO PRN ×2 (06:16→11:19)
[2019-06-15] MEDS: SYMBICORT 80/4.5MCG INHALER 6GM INH SCH (07:54)
[2019-06-15] MEDS: TIOTROPIUM INHALER/CAPSULE (SPIRIVA) INH SCH (07:54)
[2019-06-15] MEDS: BUDESONIDE 0.5 MG/2 ML INHALATION SUSPENSION INH SCH ×2 (08:00→11:48)
[2019-06-15] MEDS: PANTOPRAZOLE 40MG TAB (PROTONIX) PO SCH (08:06)
[2019-06-15] MEDS: busPIRone 10 MG TAB PO SCH (08:06)
[2019-06-15] MEDS: predniSONE 20 MG TAB PO SCH (08:06)
[2019-06-15] MEDS: DULoxetine 30 MG CAP (CYMBALTA) PO SCH (08:07)
[2019-06-15] MEDS: AZITHROMYCIN 250 MG TAB PO SCH (08:07)
[2019-06-15 08:24] LABS: HEMATOCRIT 33.8 % (36.0-47.0); HEMOGLOBIN 10.3 g/dl (12.0-15.5); MEAN CORPUSCULAR HEMOGLOBIN 29.9 pg (27.0-33.0); MEAN CORPUSCULAR HGB CONC 30.5 g/dl (32.0-36.5); MEAN CORPUSCULAR VOLUME 98.3 fl (80.0-96.0); PLATELET COUNT, AUTOMATED 382 10^3/uL (150-450); RED BLOOD COUNT 3.44 10^6/uL (4.00-5.40); WHITE BLOOD COUNT 9.6 10^3/uL (4.0-10.0)
[2019-06-15 08:53] LABS: BLOOD UREA NITROGEN 15 MG/DL (7-18); CALCIUM LEVEL 8.7 MG/DL (8.8-10.2); CARBON DIOXIDE LEVEL 45 MEQ/L (21-32); CHLORIDE LEVEL 89 MEQ/L (98-107); CREATININE FOR GFR 0.51 MG/DL (0.55-1.30); GLOMERULAR FILTRATION RATE > 60.0 (>45); GLUCOSE, FASTING 92 MG/DL (70-100); POTASSIUM SERUM 4.5 MEQ/L (3.5-5.1); SODIUM LEVEL 134 MEQ/L (136-145)
[2019-06-15 14:19] VITALS: BP 130/75
--- NOTE | 2019-06-15 23:28 | DS.PDOC ---
Discharge Summary General Date of Admission Jun 09, 2019 at 01:19 Date of Discharge June 15, 2019 Attending Physician: JONES WHITFIELD MD Specialist/Consultants Involve: Crystal QUINN MD Specialist/Consultants Involve ICU Consult: IMPRESSION: 1. Chronic obstructive pulmonary disease (COPD)/end stage. It is not clear that she truly had an exacerbation. I suspect any perturbation, such as anxiety would cause her to end up with acute difficulties secondary to air trapping. 2. Chronic hypoxemic and hypercapnic respiratory failure. 3. Emphysema. 4. Gastroesophageal reflux disease (GERD), increased symptoms. This also may be the cause of her worsened shortness of breath. 5. Hypertension. 6. Diastolic congestive heart failure. 7. Anxiety. 8. Chronic lower back pain. RECOMMENDATIONS: I would discontinue the noninvasive mechanical ventilation at this point. Per the 2007 ERS/ATS guidelines, NIMV is not recommended for patients with hypercapnia who are not acidemic, this includes people who are considered to be "pending." Perceived as potentially worsening to require intubation. The data shows no difference in morbidity nor need for intubation by use of NIMV in that situation. Would allow her to eat and would continue supplementation. We will start her on very low dose of anxiolytic as they may "take the edge off." I started her on Xanax 0.125 three times a day as needed. Would increase her GERD therapy as that may be in part explaining her symptoms or triggering underlying COPD. At this point I do not feel she needs systemic corticosteroids and will markedly decrease them. I decreased her to 20 mg for 2 days, 10 mg for 2 days and then off. Again, this appears more perturbation than an exacerbation. She should be weaned off of prednisone prior to discharge if she is no longer on prednisone on a daily basis. I have asked that the reconciled medications reflect the fact that she is no longer on prednisone on a daily basis. Would discontinue the antibiotic as she gives no infectious history. However, I will start azithromycin three times per week. This had previously been discussed with Dr. Robertson. This may help reduce her need for hospitalization (although it would not alter any hospitalizations secondary to anxiety and air trapping). She also may benefit from the anti-inflammatory effect of azithromycin. This can be discontinued at discharge if she does not want to continue to use this medication. Ms. Guidry is established with Dr. Robertson, though she has not attended and cancelled most follow-up visits. I do not feel she needs pulmonary clinic followup. It is very difficult for her to be transported to clinic. In speaking to her , she spends most of her time lying in bed and it is very difficult to get to clinic visits. I feel she may benefit from palliative care if it is available in [facility] and I have asked patient and family services (PFS) to see if it is a possibility. Thank you for this consultation. We will sign off at this time. Please consult the pulmonary service if it is felt that we can be of any further assistance. DD: Crystal QUINN MD 06/09/19 1043 DT: EMMA 06/09/192007 Discharge Summary PROCEDURES PERFORMED DURING STAY: None. ADMITTING DIAGNOSES: 1. Acute on chronic hypoxic and hypercapnic respiratory failure 2. Chronic Hyponatremia 3. Hypertension 4. Anxiety disorder DISCHARGE DIAGNOSES: 1. As above COMPLICATIONS/CHIEF COMPLAINT: Copd Exacerbation. HISTORY OF PRESENT ILLNESS: [As per initial H&P]. 63-year-old female with past medical history of COPD with emphysema, chronic hypoxemic respiratory failure requiring 2 L of oxygen at baseline, chronic hypercapnic respiratory failure, hypertension, diastolic congestive heart failure, anxiety, and chronic back pain initially presented to [facility] for shortness of breath. The patient's history is limited due to her clinical presentation. According to reports the patient started to feel acutely short of breath this afternoon with increased cough and wheezing. EMS was called, however the patient did not go to the hospital at that time. Later in the evening, the patient's respiratory status worsened and EMS was once again c alled. In the [facility], the patient was given IV steroids and nebulizer therapy which did improve the patient's respiratory status slightly but the patient remained tachypneic/tachycardic. According to the ER provider there the patient has been hospitalized over 8 times in the last 1 year, and she has been transferred to [place] multiple times due to her high risk of intubation, and requiring close monitoring in an intensive care unit setting. The patient has been transferred here for close monitoring in the intensive care unit and the potential need for BiPAP/Intubation should her respiratory further worsen. HOSPITAL COURSE: . * Pt was initially monitored for Acute on chronic hypoic respiratory failure most likely secondary to COPD exacerbation/ anxiety. She was seen by pulmonology service, was recommended to hold mechanical ventilation, taper the steroid dose, cont Azithromycin and to follow with Pulm clinic. Over the course of hospital stay she improved with HHN, O@ and other supportive care * Anxiety was managed with Xanax * Hyponatremia, pt was asymptomatic, she improved over the course of hospital stay * HTN was controlled DISCHARGE MEDICATIONS: Please see below. ALLERGIES: Please see below. PHYSICAL EXAMINATION ON DISCHARGE: VITAL SIGNS: Please see below. General: pt is in moderate respiratory distress with wheezing HEENT: ANA EOMI neck supple no icterus Lungs: bilat scattered wheezing Heart: S1 S2 no murmur Abd: soft, not tender not distended Ext: no edema no cyanosis no tenderness LABORATORY DATA: Please see below. IMAGING: NA PROGNOSIS: Guarded ACTIVITY: As tolerated. DIET: As tolerated DISCHARGE PLAN: DISPOSITION: 01 Home, Self-Care. DISCHARGE INSTRUCTIONS: 1. Return to ED with any warning signs 2. Cont. Smoking cessation 3. Cont. Fluid restriction ITEMS TO FOLLOWUP ON ON OUTPATIENT: 1. Follow with PCP 2. Follow with Pulmonology clinic Dr. Robertson DISCHARGE CONDITION: Stable, afebrile, no Respiratory distress TIME SPENT ON DISCHARGE: 30 minutes. Vital Signs/I&Os Vital Signs Date Time Temp Pulse Resp B/P (MAP) Pulse Ox O2 Delivery O2 Flow Rate FiO2 06/15/19 14:19 97.0 98 18 130/75 (93) 100 2.0 06/09/19 08:00 30 06/09/19 02:36 BIPAP/CPAP I&O- Last 24 Hours up to 6 AM 06/15/19 06:00 Intake Total 3070 ml Balance 3070 ml Laboratory Data Labs 24H Laboratory Tests 2 06/15/19 08:09: Nucleated Red Blood Cells % (auto) 0.0, Anion Gap 0L, Glomerular Filtration Rate > 60.0, Blood Urea Nitrogen 15, Creatinine 0.51L, Sodium Level 134L, Potassium Level 4.5, Chloride Level 89L, Carbon Dioxide Level 45H, Calcium Level 8.7L CBC/BMP Laboratory Tests 06/15/19 08:09 Red Blood Count 3.44 L, Mean Corpuscular Volume 98.3 H, Mean Corpuscular H emoglobin 29.9, Mean Corpuscular Hemoglobin Concent 30.5 L, Red Cell Distribution Width 12.1, Calcium Level 8.7 L Discharge Medications Scheduled Amlodipine Besylate (Amlodipine Besylate) 5 Mg Tab, 5 MG PO DAILY, (Reported) Budesonide/Formoterol (Symbicort 80-4.5 Mcg Inhaler) 6.9 Gm Hfa.aer.ad, 2 PUFF INH BID, (Reported) Buspirone HCl (Buspirone HCl) 10 Mg Tablet, 10 MG PO BID, (Reported) Duloxetine Hcl (Duloxetine HCl) 60 Mg Capsule.dr, 60 MG PO DAILY, (Reported) Furosemide (Furosemide) 40 Mg Tab, 40 MG PO DAILY, (Reported) Ipratropium/Albuterol Sulfate (Iprat-Albut 0.5-3(2.5) mg/3 ml) 1 Sonia Sonia, 3 ML INH BID, (Reported) Losartan Potassium (Losartan Potassium) 100 Mg Tab, 100 MG PO DAILY, (Reported) Pantoprazole Sodium (Pantoprazole Sodium) 40 Mg Tab, 40 MG PO DAILY, (Reported) Potassium Chloride (Potassium Chloride) 10 Meq Tab, 10 MEQ PO BID, (Reported) Prednisone (Prednisone) 5 Mg Tab, 5 MG PO DAILY, (Reported) Scheduled PRN Albuterol Sulfate (Ventolin Hfa) 18 Gm Hfa.aer.ad, 2 PUFF INH Q4H PRN for SHORTNESS OF BREATH, (Reported) Ipratropium/Albuterol Sulfate (Iprat-Albut 0.5-3(2.5) mg/3 ml) 3 Ml Ampul.neb, 3 ML INH QID PRN for SHORTNESS OF BREATH, (Reported) Tramadol HCl (Tramadol HCl) 50 Mg Tab, 50 MG PO TID PRN for PAIN, (Reported) Allergies Coded Allergies: lidocaine (Verified Allergy, Mild, RASH FROM PATCH, 06/09/19) JONES WHITFIELD MD Jun 15, 2019 23:28
== END 2019-06-15 15:45 | disposition home or self-care (01) | DRG 191 ==
LOC: M ICU 01:19 → M MSPAV 06-11 14:15
PROVIDERS: ADMIT Internal Medicine; ATTEND Hospitalist
DX: J43.1 Panlobular emphysema (principal); J96.11 Chronic respiratory failure with hypoxia; E87.1 Hypo-osmolality and hyponatremia; I50.32 Chronic diastolic (congestive) heart failure; Z68.1 Body mass index [BMI] 19.9 or less, adult; J96.12 Chronic respiratory failure with hypercapnia; E46 Unspecified protein-calorie malnutrition; F41.9 Anxiety disorder, unspecified; M54.5 Low back pain; I11.0 Hypertensive heart disease with heart failure; K21.9 Gastro-esophageal reflux disease without esophagitis; Z79.899 Other long term (current) drug therapy; Z88.8 Allergy status to other drugs, medicaments and biological substances; Z87.891 Personal history of nicotine dependence; D72.829 Elevated white blood cell count, unspecified; F32.9 Major depressive disorder, single episode, unspecified; Z66 Do not resuscitate